=== PATIENT | male | born 1950 | race Caucasian/White ===

== ENCOUNTER 2017-06-14 09:32 | Outpatient (CLI) | payer MEDICARE, BC ==
--- NOTE | 2017-06-14 12:15 | MRI ---
MRI ABDOMEN WITH AND WITHOUT IV CONTRAST: Date: 06/14/17 HISTORY: Cirrhosis of the liver. FINDINGS: The liver demonstrates irregular margin consistent with cirrhosis. There is a geographic area of decr eased T1, mildly increased T2, and delayed enhancement close to the dome of the liver consistent with fibrosis. No mass or hyperenhancement is seen. The spleen is normal, measuring about 10.4 cm in nikolas th. The pancreas, adrenal glands, and left kidney are normal. A tiny cyst is seen in the right kidney . No free fluid or lymphadenopathy is identified. No evidence of aneurysmal dilatation of the abdomin al aorta is seen. No abnormal biliary ductal dilatation is seen. Gallbladder is unremarkable. There i s no evidence of portal splenic thrombosis. The bone marrow signal is normal. IMPRESSION: Cirrhosis of the liver without evidence of mass to suggest hepatocellular carcinoma. POS: [facility]
== END 2017-06-14 09:33 | disposition home or self-care (01) ==
LOC: MRI 09:32
PROVIDERS: ATTEND Internal Medicine Gastroenterology
DX: K74.60 Unspecified cirrhosis of liver (principal)
CPT/HCPCS: 74183

== ENCOUNTER 2017-07-26 13:47 | Outpatient (CLI) | payer MEDICARE, BC | END 2017-07-26 13:48 | disposition home or self-care (01) | LOC: BICMAMMO 13:47 | PROVIDERS: ATTEND Family Medicine | DX: Z13.820 Encounter for screening for osteoporosis (principal); Z79.52 Long term (current) use of systemic steroids | CPT/HCPCS: 77080 ==

== ENCOUNTER 2017-12-20 09:50 | Outpatient (CLI) | payer MEDICARE, BC ==
[~2017-12-20 09:50] MED LIST: Gadobenate Dimeglumine 529 MG/1 ML (20ML VIAL) ONE
== END 2017-12-20 09:51 | disposition home or self-care (01) ==
LOC: BICMRI 09:50
PROVIDERS: ATTEND Internal Medicine Gastroenterology
DX: K22.70 Barrett's esophagus without dysplasia (principal); K70.30 Alcoholic cirrhosis of liver without ascites; K72.90 Hepatic failure, unspecified without coma; R53.83 Other fatigue; R18.8 Other ascites; K82.8 Other specified diseases of gallbladder
CPT/HCPCS: 74183; 82565; A9579

== ENCOUNTER 2018-06-20 11:07 | Outpatient (CLI) | payer MEDICARE, BC ==
--- NOTE | 2018-06-20 14:49 | MRI ---
MRI ABDOMEN WITH AND WITHOUT CONTRAST: INDICATIONS: History of hepatic ascites. Esophagus and hepatic encephalopathy. Alcoholic cirrhosis. COMPARISON: MRI abdomen with and without contrast, dated 12/10/2017. CONTRAST: MultiHance 12 mL. FINDINGS: Wedge-like regions of abnormal arterial enhancement within the peripheral aspect of the left hepatic lobe on the prior exam are not recreated on the current examination, likely related to signal intensi ty alterations from artifact. No suspicious arterially enhancing lesion is evident. The morphologic al appearance of cirrhosis of the liver is stable. The spleen measures 10 cm. No free fluid is evid ent. There is a small cyst involving the superior pole of the right kidney, which is stable. No pat hologically enlarged lymph nodes are evident. No bone marrow signal abnormality is noted. IMPRESSION: 1. Small wedge-like areas of transient arterial enhancement involving the anterior left hepatic lobe , seen on the comparison examination, dated 12/10/2017, do not persist and were likely artifactual. 2. Stable changes of cirrhosis of the liver without suspicious enhancement or signal abnormality. 3. Stable small right renal cyst. POS: [facility]
== END 2018-06-20 11:08 | disposition home or self-care (01) ==
LOC: MRI 11:07
PROVIDERS: ATTEND Internal Medicine Gastroenterology
DX: K70.31 Alcoholic cirrhosis of liver with ascites (principal); K72.90 Hepatic failure, unspecified without coma; K22.70 Barrett's esophagus without dysplasia; N28.1 Cyst of kidney, acquired
CPT/HCPCS: 74183; 82565; A9577